=== PATIENT | male | born 1975 | race African-American/Black ===

== ENCOUNTER 2016-11-25 09:39 | Emergency (ER) | payer SELFPAY ==
[~2016-11-25] VITALS: Ht 182.9 cm; Wt 86.0 kg
[2016-11-25 10:34] VITALS: BP 160/103
== END 2016-11-25 11:33 | disposition home or self-care (01) ==
LOC: ER 11:21
DX: J06.9 Acute upper respiratory infection, unspecified (principal)
CPT/HCPCS: 99283